=== PATIENT | female | born 1970 | race Asian ===

== ENCOUNTER 2017-01-17 10:16 | Outpatient (CLI) | payer BC ==
--- NOTE | 2017-01-21 14:19 | PET ---
PET CT: CLINICAL HISTORY: Breast cancer. COMPARISON: No prior comparison. RADIOPHARMACEUTICAL: Fluorine-18 FDG 11.4 millicuries IV. FINDINGS: There is appropriate biodistribution of radiotracer activity. There is asymmetric increased activit y at the anterior aspect of the right breast with additional underlying increased metabolic activity . There is an indwelling breast clip posteriorly within the right breast. These findings correlate with the provided history of breast cancer, and an additional superimposed hypermetabolic component related to intervention may also be present, not further characterized on the basis of this exam. The maximum SUV of the increased metabolic activity of the post procedural right breast measures 3.1 . Otherwise, no evidence of hypermetabolic mass or adenopathy of the neck, chest, abdomen, or pelvi s. No discrete hypermetabolic osseous lesions are evident. Incidental note of colonic diverticulosis. There is a left chest port. Low attenuation of the live r indicates hepatic steatosis, although incompletely assessed on this exam. Correlate with liver fu nction enzymes. IMPRESSION: Increased metabolic activity with hypermetabolic activity localizing to the postprocedural right darryn ast, which is in keeping with the provided clinical history of right breast malignancy, although fin dings may relate, at least in part, to prior procedure. Correlate with the patient's history and ph ysical examination. There is no scintigraphic evidence to indicate distant metastatic disease. POS: [id number]
== END 2017-01-17 10:17 | disposition home or self-care (01) ==
LOC: PET 10:16
PROVIDERS: ATTEND Internal Medicine Medical Oncology
DX: C50.211 Malignant neoplasm of upper-inner quadrant of right female breast (principal)
CPT/HCPCS: 78815; A9552

== ENCOUNTER 2017-01-20 12:27 | Outpatient (CLI) | payer BC | END 2017-01-20 12:28 | disposition home or self-care (01) | LOC: PET 12:27 | PROVIDERS: ATTEND Internal Medicine Medical Oncology | DX: C50.211 Malignant neoplasm of upper-inner quadrant of right female breast (principal) ==

== ENCOUNTER 2017-09-10 10:33 | Outpatient (CLI) | payer BC | END 2017-09-10 10:34 | disposition home or self-care (01) | LOC: BICMAMMO 10:33 | PROVIDERS: ATTEND Internal Medicine Medical Oncology | DX: Z08 Encounter for follow-up examination after completed treatment for malignant neoplasm (principal); Z80.3 Family history of malignant neoplasm of breast; Z85.3 Personal history of malignant neoplasm of breast; Z98.890 Other specified postprocedural states | CPT/HCPCS: 77066; G0279 ==